=== PATIENT | male | born 1975 ===

== ENCOUNTER 2017-02-22 21:42 | Emergency (ER) | payer OTHER ==
[2017-02-22 21:57] VITALS: BP 122/77; PULSE 61; TEMP 97.7; O2SAT 98
[2017-02-22] MEDS ORDERED: Alum-Mag Hydrox-Simethicone Susp (30 mL) PO STA (22:28)
[2017-02-22] MEDS ORDERED: Alum-Mag Hydrox-Simethicone Susp (30 mL) ONE (23:06)
--- NOTE | 2017-02-22 23:23 | ED PDOC ---
HPI: Abdomen Time Seen by Provider: 02/22/17 22:04 Chief Complaint (Nursing): Shortness Of Breath Chief Complaint (Provider): Abdominal Pain History Per: Patient History/Exam Limitations: no limitations Onset/Duration Of Symptoms: Gradual (worsening x1 month), Worse Since (more severe in last 2 days), Other (x4 months) Current Symptoms Are (Timing): Still Present Location Of Pain/Discomfort: Epigastric Associated Symptoms: Vomiting, Constipation. denies: Diarrhea Exacerbating Factors: Food Additional Complaint(s): 41 year old male presents to ED with complaints of ongoing abdominal pain x4 months and has no past medical history. Describes the pain as epigastric and radiating into his chest. Notes that pain has been slowly worsening over the last month, and has increased severely within the last 2 days. (+) intermittent vomiting, constipation, and black stool. (-) red stool, weight loss, or urinary symptoms. Patient confirms he has vomited x3 times today (blood-tinged). States pain worsens with eating and notes he has never seen a physician for this ongoing issue. PCP: Ya Garcia Past Medical History Reviewed: Historical Data, Nursing Documentation, Vital Signs Vital Signs: Last Vital Signs Temp 97.7 F 02/22/17 21:54 Pulse 61 02/22/17 21:54 Resp 18 02/22/17 23:00 BP 122/77 02/22/17 21:54 Pulse Ox 98 02/22/17 23:48 - Medical History PMH: No Chronic Diseases - Surgical History Other surgeries: Right knee surgery - Family History Family History: States: No Known Family Hx - Social History Current smoker - smoking cessation education provided: No Ex-Smoker (has not smoked in the last 12 months): No Alcohol: None - Home Medications Home Medications: Ambulatory Orders Medication Instructions Recorded Famotidine [Pepcid] 40 mg PO DAILY PRN #14 tab 02/22/17 Dicyclomine [Bentyl] 20 mg PO BID PRN #30 tab 02/23/17 Ondansetron ODT [Zofran ODT] 1 odt PO Q6 PRN #20 odt 02/23/17 - Allergies Allergies/Adverse Reactions: Allergies Allergy/AdvReac Type Severity Reaction Status Date / Time No Known Allergies Allergy Verified 02/22/17 21:57 Review of Systems ROS Statement: Except As Marked, All Systems Reviewed And Found Negative Constitutional: Negative for: Weight loss Cardiovascular: Positive for: Chest Pain (pain radiates to chest) Gastrointestinal: Positive for: Vomiting (blood tinged), Abdominal Pain, Constipation, Melena. Negative for: Hematochezia Genitourinary Male: Negative for: Dysuria, Frequency, Incontinence, Hematuria Physical Exam - Reviewed Nursing Documentation Reviewed: Yes Vital Signs Reviewed: Yes - Physical Exam Appears: Positive for: Non-toxic, In Acute Distress Head Exam: Positive for: ATRAUMATIC, NORMOCEPHALIC Skin: Positive for: Warm, Dry Eye Exam: Positive for: EOMI, PERRL. Negative for: Scleral icterus ENT: Negative for: Pharyngeal Erythema, Tonsillar Exudate Neck: Positive for: Painless ROM, Supple Cardiovascular/Chest: Positive for: Regular Rate, Rhythm, Chest Non Tender. Negative for: Murmur Respiratory: Positive for: Normal Breath Sounds. Negative for: Wheezing Gastrointestinal/Abdominal: Positive for: Soft, Tenderness (epigastric). Negative for: Mass, Distended, Guarding, Rebound Back: Positive for: Normal Inspection. Negative for: Decreased ROM Extremity: Positive for: Normal ROM. Negative for: Deformity Lymphatic: Negative for: Adenopathy Neurologic/Psych: Positive for: Alert. Negative for: Motor/Sensory Deficits - Laboratory Results Result Diagrams: 02/22/17 23:36 02/22/17 23:36 - ECG O2 Sat by Pulse Oximetry: 98 (RA) Pulse Ox Interpretation: Normal Medical Decision Making Medical Decision Makin Initial impression: epigastric pain DDx:gastritis, peptic ulcer disease, cholelithiasis, pancreatitis, hepatitis Initial plan: * T&S * Labs * LDH * Lipase * PTT/PT * Maalox Plus 30mL PO * Pepcid 40mg PO * Lidocaine 2% viscous 10mL PO * US ABD LIMITED * Re-eval Accession No. : [id number] Patient Name / ID : MAGDALENA ROBERTS / [id number] Exam Date : 02/22/2017 23:03:33 ( Approved ) Study Comment : Sex / Age : M / 41Y Creator : Rupinder Tyler MD Dictator : Firebreak Cutter : Supercalender Operator : Rupinder Tyler MD Approver2 : Report Date : 02/22/2017 23:38:00 My Comment : [facility] Division of Radiology [address] [place] [address] Tel. no. Patient Name: ALEJANDRA NICHOLS Pt. Address: [address] [place] [address] Rec #: [id number] [place] [address]: Seth PEREZ, Libby Marie Pt Order Location: [place] : 1975 Male Age: 41 Order #: [id number] Reason for exam: epigastric pain Ultrasound ABDOMEN LIMITED (GB INCLUDED) Exam Date: 02/22/17 This imaging exam was performed at [facility] EXAM: US Abdomen Limited, Right Upper Quadrant EXAM DATE/TIME: 02/22/2017 10:28 PM CLINICAL HISTORY: 41 years old, male; Pain; Abdominal pain; Epigastric; Additional info: Epigastric pain TECHNIQUE: Real-time ultrasound of the right upper quadrant with image documentation. COMPARISON: No relevant prior studies available. FINDINGS: Gallbladder: Wall/echo/shadow appearance of the gallbladder fossa, compatible with either multiple stones or a large stone filling a contracted gallbladder. The shadowing does limit evaluation of the gallbladder, but there is no definite pericholecystic fluid or gallbladder wall thickening seen. Reportedly negative sonographic Orourke's sign. Common bile duct: Does not appear abnormally dilated, measuring less than 6 mm in diameter. Liver: Demonstrates mildly increased parenchymal echogenicity, most likely due to mild fatty infiltration. Otherwise within normal limits in appearance. Measures 14.6 cm in length. Normal flow seen in the main portal vein on color and Doppler imaging. Pancreas: Poorly seen due to gas. Right kidney: Within normal limits in appearance. Measures 9.6 cm in length. No evidence of hydronephrosis. IMPRESSION: Findings compatible with multiple gallstones or a large gallstone, filling a contracted gallbladder. There is no definite sonographic evidence of acute cholecystitis. Fatty infiltration of the liver. See above for remaining findings. Dictated By: Rupinder Tyler MD Dictated Date/Time: 02/22/172337 Signed By: Rupinder Tyler MD Date Signed: [id number] Transcribed By: FLORESITA Transcribe Date/Time : 02/22/172337 [facility]/[place] Scribe Attestation: Documented by Elsy Davis acting as a scribe for Megan Gómez MD. Scribe Attestation: All medical record entries made by the Scribe were at my direction and personally dictated by me. I have reviewed the chart and agree that the record accurately reflects my personal performance of the history, physical exam, medical decision making, and the department course for this patient. I have also personally directed, reviewed, and agree with the discharge instructions and disposition. Disposition - Clinical Impression Clinical Impression: Abdominal pain, Cholelithiases Counseled Patient/Family Regarding: Studies Performed, Diagnosis, Need For Followup, Rx Given - Disposition Referrals: Gianluca Odonnell MD [Staff Provider] - 02/28/17 (CALL SURGEON TOMORROW TO FOLLOW UP WITHIN A WEEK) Disposition: Routine/Home Disposition Time: 00:03 Condition: STABLE Prescriptions: Dicyclomine [Bentyl] 20 mg PO BID PRN #30 tab PRN Reason: abdominal pain Famotidine [Pepcid] 40 mg PO DAILY PRN #14 tab PRN Reason: reflux Ondansetron ODT [Zofran ODT] 1 odt PO Q6 PRN #20 odt PRN Reason: Nausea/Vomiting Instructions: Gallstones (ED), Abdominal Pain (ED) Forms: [facility] ED School/Work Excuse Print Language: DJIBOUTIAN
--- NOTE | 2017-02-22 23:38 | US ---
EXAM: US Abdomen Limited, Right Upper Quadrant EXAM DATE/TIME: 02/22/2017 10:28 PM CLINICAL HISTORY: 41 years old, male; Pain; Abdominal pain; Epigastric; Additional info: Epigastric pain TECHNIQUE: Real-time ultrasound of the right upper quadrant with image documentation. COMPARISON: No relevant prior studies available. FINDINGS: Gallbladder: Wall/echo/shadow appearance of the gallbladder fossa, compatible with either multiple stones or a large stone filling a contracted gallbladder. The shadowing does limit evaluation of the gallbladder, but there is no definite pericholecystic fluid or gallbladder wall thickening seen. Reportedly negative sonographic Orourke's sign. Common bile duct: Does not appear abnormally dilated, measuring less than 6 mm in diameter. Liver: Demonstrates mildly increased parenchymal echogenicity, most likely due to mild fatty infiltration. Otherwise within normal limits in appearance. Measures 14.6 cm in length. Normal flow seen in the main portal vein on color and Doppler imaging. Pancreas: Poorly seen due to gas. Right kidney: Within normal limits in appearance. Measures 9.6 cm in length. No evidence of hydronephrosis. IMPRESSION: Findings compatible with multiple gallstones or a large gallstone, filling a contracted gallbladder. There is no definite sonographic evidence of acute cholecystitis. Fatty infiltration of the liver. See above for remaining findings.
[2017-02-22 23:41] LABS: BASO # 0.1 K/uL (0.0-0.2); BASO % 1.6 % (0.0-2.0); EOS # 0.8 K/uL (0.0-0.7); EOS % 12.3 % (0.0-4.0); LYMPH # 2.9 K/uL (1.0-4.3); LYMPH % 44.3 % (20.0-40.0); MEAN CELL VOLUME 91.4 fl (80.0-94.0); MEAN CORPUSCULAR HEMOGLOBIN 30.1 pg (27.0-31.0); MEAN PLATELET VOLUME 10.9 fl (7.2-11.7); MONO # 0.4 K/uL (0.0-0.8); MONO % 5.5 % (0.0-10.0); NEUT # 2.3 K/uL (1.8-7.0); NEUT % 36.3 % (50.0-75.0); RED CELL DISTRIBUTION WIDTH 13.6 % (11.5-14.5); WHITE BLOOD COUNT 6.4 K/uL (4.8-10.8)
[2017-02-22 23:47] VITALS: RESP 18
[2017-02-22 23:51] LABS: ALB/GLOB RATIO 1.3 (1.0-2.1); ALKALINE PHOSPHATASE 66 U/L (38-126); ALT/SGPT 47 U/L (21-72); AST/SGOT 26 U/L (17-59); BILIRUBIN,TOTAL 0.6 mg/dl (0.2-1.3); BLOOD UREA NITROGEN 18 mg/dl (9-20); CARBON DIOXIDE 26 mmol/L (22-30); CHLORIDE 105 mmol/L (98-107); GFR AFRICAN-AMERICAN > 60; GLUCOSE,RANDOM 105 mg/dL (75-110); LIPASE 147 U/L (23-300); PARTIAL THROMBOPLASTIN TIME 34.1 Seconds (25.6-37.1); SODIUM 142 mmol/l (132-148); TOTAL PROTEIN 7.6 G/DL (6.3-8.2)
== END 2017-02-23 00:24 | disposition home or self-care (01) ==
LOC: H.ER 21:42
DX: K80.20 Calculus of gallbladder without cholecystitis without obstruction (principal); K76.0 Fatty (change of) liver, not elsewhere classified; K59.00 Constipation, unspecified